=== PATIENT | female | born 1970 | race Caucasian/White ===

== ENCOUNTER 2017-08-16 15:33 | Outpatient (CLI) | payer OTHER ==
--- NOTE | 2017-08-16 17:34 | MRI ---
MRI OF THE RIGHT KNEE 08/16/17 PROVIDED CLINICAL HISTORY: Right knee pain. TECHNIQUE: Multiplanar and multisequence MRI imaging is performed of the right knee. FINDINGS: The anterior cruciate ligament, posterior cruciate ligament, medial collateral ligament and lateral collateral ligamentous complex demonstrate an intact appearance as does the extensor mechanism. ACL ganglion formation is noted. There is a nondisplaced complex tear involving the body of the medial meniscus. The lateral meniscus demonstrates no evidence for tear. No focal articular cartilage defect is apparent. The amount of fluid within the knee joint appears physiologic. No focal concerning regional marrow or muscular signal abnormality. IMPRESSION: Nondisplaced complex tear involving the body of the medial meniscus. POS: OFF
== END 2017-08-16 15:34 | disposition home or self-care (01) ==
LOC: SCSMRI 15:33
PROVIDERS: ATTEND Internal Medicine
DX: M25.561 Pain in right knee (principal); S83.241A Other tear of medial meniscus, current injury, right knee, initial encounter

== ENCOUNTER 2018-02-06 10:30 | Outpatient (CLI) | payer OTHER ==
[~2018-02-06 10:30] MED LIST: Iopamidol 370 76% 100 ML VIAL ONE
--- NOTE | 2018-02-06 13:21 | CT ---
CT OF THE ABDOMEN AND PELVIS: Date: 02-06-18 Comparison: 02-01-17 History: Abdominal pain, midabdominal pain. Technique: Serial axial CT imaging at 5 mm intervals from lung bases through pubic symphysis with int ravenous and oral contrast media. Coronal reformatted imaging obtained. FINDINGS: The imaged lung bases are unremarkable. There is no free intraperitoneal air. Cholecystectomy clips a re present. The hepatic parenchyma is diffusely hypodense suggesting steatosis. The spleen, pancreas, and adrenal glands are grossly unremarkable. There are stable subcentimeter hypodensities within the left kidney suggesting small cysts, too small to characterize, however. There is an IUD within the uterus. There is a low density lesion in the re gion of the ventral aspect of the cervix suggesting a possible nabothian cyst, stable. The appendix is within normal limits. There is a vague area of new soft tissue density with mild stranding of adjacent mesenteric fat at th e junction of the cecum and the terminal ileum, best seen on image 50, measuring approximately 1.8 cm in greatest dimension. Etiology is uncertain. There is no evidence for bowel obstruction. There is no abdominal or pelvic lymphadenopathy. The vascular structures of the abdomen and pelvis ap pear unremarkable. Osseous structures demonstrate multilevel degenerative change within the lower tho racic spine and upper lumbar spine, including mild anterior osteophyte formation. No worrisome lytic or blastic bone lesion is seen. IMPRESSION: There is a focal area of irregular ill-defined soft tissue density in the region of the cecum anterio rly, inseparable from the distal aspect of the terminal ileum. There is stranding of adjacent mesente clemencia fat. This area of abnormality measures 1.8 cm in greatest dimension. This could represent an area of cecal and/or terminal ileum inflammatory change which can be seen on the basis of an infectious p rocess or inflammatory process including Crohn's disease. An alternative consideration would be a cec al and/or terminal ileum neoplastic process. Recommend GI consultation. Perhaps this area could be vi sualized via colonoscopy. Code T POS: PORFIRIO
== END 2018-02-06 10:31 | disposition home or self-care (01) ==
LOC: SCSCT 10:30
PROVIDERS: ATTEND Internal Medicine
DX: R10.9 Unspecified abdominal pain (principal); R93.5 Abnormal findings on diagnostic imaging of other abdominal regions, including retroperitoneum
CPT/HCPCS: 74177

== ENCOUNTER 2018-08-12 16:28 | Outpatient (CLI) | payer OTHER ==
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
== END 2018-08-12 16:29 | disposition home or self-care (01) ==
LOC: SCSRAD 16:28
PROVIDERS: ATTEND Internal Medicine
DX: M25.572 Pain in left ankle and joints of left foot (principal); M79.605 Pain in left leg

== ENCOUNTER 2018-12-24 14:39 | Outpatient (CLI) | payer OTHER | END 2018-12-24 14:40 | disposition home or self-care (01) | LOC: BICMAMMO 14:39 | PROVIDERS: ATTEND Internal Medicine | DX: N64.4 Mastodynia (principal) | CPT/HCPCS: 77066; G0279 ==

== ENCOUNTER 2019-06-15 11:10 | Outpatient (CLI) | payer OTHER ==
--- NOTE | 2019-06-15 12:17 | RAD ---
Exam: Right femur 2 views: HISTORY: Right femur pain for several months without injury COMPARISON: None FINDINGS: No evidence for fracture, dislocation, or other significant acute osseous abnormality. IMPRESSION: No significant acute process.
== END 2019-06-15 11:11 | disposition home or self-care (01) ==
LOC: SCSRAD 11:10
PROVIDERS: ATTEND Internal Medicine
DX: M79.604 Pain in right leg (principal)

== ENCOUNTER 2020-07-28 08:30 | Outpatient (CLI) | payer OTHER ==
--- NOTE | 2020-07-28 10:24 | CT ---
CT Abdomen Pelvis W Con: 07/28/2020 8:39 AM CLINICAL INFORMATION: Mid abdominal pain with nausea COMPARISON: 06/27/2020 TECHNIQUE: Multiple contiguous axial images were obtained and a CT of the abdomen and pelvis with IV contrast. Oral contrast was administered. Coronal and sagittal reformats were performed. FINDINGS: Lower Chest: within normal limits. Abdomen: Liver: There is a small hypodense region adjacent to falciform ligament which likely represents focal fatty infiltration. Bile Ducts: Normal caliber. Gallbladder: Removed. Pancreas: within normal limits. Spleen: within normal limits. Adrenals: within normal limits. Kidneys: Stable subcentimeter hypodensities in the left kidney are too small to definitely characteri ze but likely represent cysts. Pelvis: Reproductive Organs: No pelvic masses. Ureters: within normal limits. Bladder: within normal limits. Peritoneum: No ascites or free air, no fluid collection. Bowel: Normal caliber. Mesentery and Retroperitoneum: No enlarged mesenteric or retroperitoneal lymph nodes. Vessels: Normal. Abdominal Wall: within normal limits. Bones: Within normal limits IMPRESSION: 1. No evidence of acute intraabdominal or pelvic abnormality. 2. Possible left renal cysts
== END 2020-07-28 08:31 | disposition home or self-care (01) ==
LOC: TBSIIMAG 08:30
PROVIDERS: ATTEND Internal Medicine
DX: R10.9 Unspecified abdominal pain (principal)
CPT/HCPCS: 74177

== ENCOUNTER 2021-08-08 10:36 | Outpatient (CLI) | payer OTHER | END 2021-08-08 10:37 | disposition home or self-care (01) | LOC: BICRAD 10:36 | PROVIDERS: ATTEND Physician Assistant Medical | DX: K52.9 Noninfective gastroenteritis and colitis, unspecified (principal); R14.0 Abdominal distension (gaseous); R11.0 Nausea; R93.3 Abnormal findings on diagnostic imaging of other parts of digestive tract; K59.00 Constipation, unspecified | CPT/HCPCS: 74019 ==

== ENCOUNTER 2024-12-02 14:12 | Outpatient (CLI) | payer OTHER | END 2024-12-02 14:13 | disposition home or self-care (01) | LOC: SCSRAD 14:12 | PROVIDERS: ATTEND Internal Medicine | DX: M25.562 Pain in left knee (principal) ==